=== PATIENT | male | born 1985 | race Caucasian/White ===

== ENCOUNTER 2018-06-27 17:07 | Emergency (ER) | payer BC, SELFPAY ==
[2018-06-27 17:16] VITALS: BP 127/87; PULSE 81; RESP 16; TEMP 37.2; O2SAT 97
--- NOTE | 2018-06-27 19:30 | ED_ITS ---
HPI - Dental/Oral General Chief complaint: Dental/Oral Stated complaint: facial swelling Time Seen by Provider: 06/27/18 19:28 Source: patient Mode of arrival: ambulatory Limitations: no limitations History of Present Illness HPI Narrative: Patient is a 33-year-old male with known very poor dentition who is seen a dentist in the past and was instructed he needed have multiple tooth extractions here for evaluation of swelling in his right upper face. States it has been going on for the past couple days. He is still tolerating oral intake. No respiratory symptoms. Has not tried anything for this prior to arrival. Related Data Previous Rx's Medication Instructions Recorded penicillin V potassium 500 mg PO QID 7 Days #28 tab 06/27/18 Review of Systems Constitutional Denies fever(s) and Denies headache(s) ENT Ears, Nose, Mouth, and Throat: Reports dental pain, Denies vertigo, Reports facial pain, Denies headache(s), Reports mouth lesions, Reports mouth pain, Denies neck pain, Denies nose pain, Denies disequilibrium, Denies sinus pressure , Denies sore throat, Denies throat swelling and Denies tongue swelling Cardiovascular Denies chest pain and Denies dyspnea Respiratory Denies cough and Denies dyspnea Gastrointestinal Gastrointestinal: Denies nausea and Denies vomiting Musculoskeletal Denies neck pain Integumentary/Breasts Denies lesions and Denies rash Neurologic Denies vertigo, Denies headache(s) and Denies disequilibrium Hematologic/Lymphatic Denies easy bleeding and Denies easy bruising Allergic/Immunologic Denies throat swelling and Denies tongue swelling PFSH Medical History Hemophilia (Acute) Surgical History No pertinent past surgical history (Acute) Social History lives independently: Yes Smoking Status: Never smoker Exam Initial Vital Signs Initial Vital Signs: Vital Signs Temperature 99.0 F 06/27/18 17:16 Pulse Rate 81 06/27/18 17:16 Respiratory Rate 16 06/27/18 17:16 Blood Pressure 127/87 06/27/18 17:16 Pulse Oximetry 97 06/27/18 17:16 Const General: cooperative, healthy appearing, comfortable, well developed, well groomed and No acute distress Orientation: alert, awake and oriented x3 HENMT Head: normal to inspection, normocephalic and atraumatic Ears: other ( left tympanic membrane is cured by cerumen) Face and sinus: other ( patient has right upper mouth swelling.) Mouth: other ( does have a small area what appears to be an abscess in right upper teeth) Teeth and gingiva: caries and poor dentition Resp Effort & Inspection: normal respiratory effort Auscultation: clear to auscultation bilaterally Cardio Rate: regular rate Rhythm: regular rhythm Skin Lesions: no lesions Rashes: no rashes Neuro General: alert, awake and oriented x3 Extrem General: normal to inspection and capillary refill normal Psych Appearance: grossly normal and well kempt Course Orders Ordered: Discontinued Medications Penicillin V Potassium (Veetids) 500 mg PO NOW ONE Stop: 06/27/18 19:38 Last Admin: 06/27/18 19:45 Dose: 500 mg Vital Signs - 8 hr 06/27/18 17:16 06/27/18 19:53 Temperature 99.0 F 97.6 F Pulse Rate 81 80 Respiratory Rate 16 18 Blood Pressure 127/87 Blood Pressure [Right Arm] 130/80 Pulse Oximetry 97 99 MDM - Dental/Oral MDM Narrative Medical decision making narrative: patient what appears to be a dental abscess in his right upper mouth. No airway issues. There is a small area a at the mucosa which could potentially be drained here in the emergency department however the patient declined this offer stating that he is a hemophiliac and has problems with bleeding. I did inform him that there was an area that I could drain here in the ER that would potentially improve some of his symptoms that we could deal with the bleeding afterwards but he declined this offer. Will send home with a prescription for antibiotics. He was given return precautions. He expressed understanding and agreement with plan. Discharge Plan Departure Patient Disposition: Home Clinical Impression: Dental abscess Discharge Date/Time: 06/27/18 20:18 Interventions: ED Discharge Assessment Last Done: 06/27/18 20:17 Instructions: Tooth Abscess Activity Restrictions/Additional Instructions: you do need to see a dentist to take care of the infection that you have today and also to address your other dental issues. Your 1st dose of antibiotics was given to you this evening. Start taking them 4 times a day tomorrow. Return to the emergency department for any new or worsening symptoms Prescriptions: New penicillin V potassium 500 mg tablet 500 mg PO QID 7 Days Qty: 28 RF: 0
[2018-06-27] MEDS: PENICILLIN VK 250 MG TABLET 500 MG PO (19:45)
[2018-06-27 19:53] VITALS: BP 130/80; PULSE 80; RESP 18; TEMP 36.4; O2SAT 99
--- NOTE | 2018-06-27 20:18 | PC.NURSE ---
No difficulty swallowing,right sided facial swelling today,has multiple dental caries,no n/v,no fevers.
== END 2018-06-27 20:18 | disposition home or self-care (01) ==
PROVIDERS: Emergency Provider Emergency Medicine
DX: K04.7 Periapical abscess without sinus (principal)
CPT/HCPCS: 99282; 99283

== ENCOUNTER 2018-08-18 05:14 | Emergency (ER) | payer BC, SELFPAY ==
[2018-08-18 05:22] VITALS: BP 125/83; PULSE 80; RESP 16; TEMP 36.8; O2SAT 99
[2018-08-18 05:25] VITALS: PULSE 80; RESP 16; TEMP 36.8; O2SAT 99; BMI 31.1
[2018-08-18 06:15] VITALS: PULSE 75; RESP 16; TEMP 36.8; O2SAT 98; BMI 31.1
[2018-08-18 06:24] VITALS: BP 119/69; PULSE 75; RESP 16; O2SAT 98
[2018-08-18 06:25] LABS: Add Manual Diff / Slide Review NO; Basophils Absolute Auto 0 /uL (0-100); Basophils Percent Auto 0.7 % (0-2); Eosinophils Absolute Auto 0 /uL (0-450); Eosinophils Percent Auto 0.5 % (2-4); Hematocrit 38.3 % (41-53); Hemoglobin 13.8 g/dL (13.5-17.5); Lymphocytes Absolute Auto 2600 /uL (1100-4500); Lymphocytes Percent Auto 33.8 % (25-40); Mean Corpuscular Hemoglobin 30.8 PG (26-34); Mean Corpuscular Volume 85.5 fL (80-100); Monocytes Absolute Auto 500 /uL (0-900); Neutrophils Absolute Auto 4400 /uL (1500-7000); Platelet Count 221 X10^3/uL (150-400); Red Blood Cell Count 4.48 X10^6/uL (4.5-5.9); Red Cell Distribution Width 13.1 % (11.6-14.8); White Blood Cell Count 7.5 X10^3/uL (4.5-11.0)
[2018-08-18] MEDS: AMOXICILLIN 250 MG CAPSULE 500 MG PO (06:35)
--- NOTE | 2018-08-31 09:18 | ED.ABDPAIN ---
HPI - Abdominal Pain General Chief Complaint: Abdominal Pain Stated Complaint: Abdominal Pain Time Seen by Provider: 08/18/18 05:32 Source: patient Mode of arrival: ambulatory Limitations: no limitations History of Present Illness HPI narrative: Patient complains of blood in the toilet paper after wiping when having a bowel movement. He states he has had some lower abdominal cramping recently, but no diarrhea, nausea, or vomiting. No fevers. Patient has occasionally had the symptoms before. He states he is not bleeding in between onto his underwear. He has not had any melena. No maroon stools. Patient has no known history of ulcerative disease of any kind. He states he is otherwise healthy. He does have a tooth that has been bothering him and is concerned that may be infected. He has not had any swelling of the face or gums. No drainage into his mouth. No other complaints at this time. Patient states his pain currently is a 2/10. Nothing makes it better or worse. Patient states his main concern about the bleeding is that he has a history of a mild form of hemophilia. Related Data Previous Rx's Medication Instructions Recorded amoxicillin 500 mg PO TID #20 cap 08/18/18 Allergies Allergy/AdvReac Type Severity Reaction Status Date / Time codeine Allergy Verified 08/18/18 05:33 Review of Systems Constitutional Denies chills, Denies fever(s), Denies lethargy and Denies weakness Eyes Denies change in vision, Denies eye discharge, Denies irritation and Denies loss of vision ENT Ears, Nose, Mouth, and Throat: Denies change in voice, Denies neck pain and Denies sore throat Cardiovascular Denies chest pain, Denies irregular heart rhythm, Denies lightheadedness, Denies palpitations, Denies dyspnea, Denies dyspnea on exertion and Denies orthopnea Respiratory Denies cough, Denies dyspnea, Denies dyspnea on exertion and Denies wheezing Gastrointestinal Gastrointestinal: Denies change in bowel habits, Denies diarrhea, Denies nausea and Denies vomiting Comments: Abdominal cramping, rectal bleeding Genitourinary Denies hematuria, Denies flank pain, Denies urinary incontinence and Denies urinary urgency Musculoskeletal Denies neck pain Integumentary/Breasts Denies pruritus, Denies erythema, Denies rash and Denies wounds Neurologic Denies confusion, Denies loss of vision and Denies weakness Psychiatric Denies anxiety, Denies confusion, Denies depression, Denies homicidal ideation and Denies suicidal ideation Endocrine Denies palpitations Hematologic/Lymphatic Denies easy bruising Allergic/Immunologic Denies wheezing [facility] Medical History Hemophilia (Acute) Surgical History No pertinent past surgical history (Acute) Social History lives independently: Yes Smoking Status: Never smoker Social History lives independently: Yes Smoking Status: Never smoker Exam Initial Vital Signs Initial Vital Signs: Vital Signs Temperature 98.2 F 08/18/18 05:22 Pulse Rate 80 08/18/18 05:22 Respiratory Rate 16 08/18/18 05:22 Blood Pressure 125/83 08/18/18 05:22 Pulse Oximetry 99 08/18/18 05:22 Const General: cooperative and well developed Nutritional Appearance: well nourished Orientation: alert, awake, oriented x3 and not confused HENMT Head: normocephalic and atraumatic Ears: external ears normal Nose: external nose normal and No nasal discharge Face and sinus: face symmetric and No dry mucous membranes Mouth: oral mucosae normal and moist mucous membranes Teeth and gingiva: caries and poor dentition Eyes General: appearance normal, both eyes and all related structures Eyelids: eyelids normal Conjunctivae: conjunctivae normal Sclera: sclerae normal Pupils: PERRL EOM: EOM intact bilaterally Neck Neck: normal visual inspection, trachea midline, No lymphadenopathy, No midline deformity and No JVD Lymphatic: No lymphedema Chest Chest: normal inspection of the chest Resp Effort & Inspection: normal respiratory effort, able to speak in complete sentences, no respiratory distress and no use of accessory muscles Auscultation: clear to auscultation bilaterally, no rales, no rhonchi and no wheezes Cardio Rate: regular rate Rhythm: regular rhythm Heart Sounds: no click, no gallops, no murmurs and no rubs Pulses: normal peripheral pulses GI Inspection: non-distended Palpation: soft, no hepatosplenomegaly, No guarding, No pulsatile mass and No tender Auscultation: normal bowel sounds Rectal Exam: visual inspection normal, normal sphincter tone, No abnormal stool and heme negative stool Back/Spine/Pelvis Back: No CVA tenderness Cervical Spine: cervical ROM normal and No pain with cervical ROM Thoracic/Lumbar Spine: thoracic and lumbar spine normal to inspection Skin General: no rashes or lesions noted, No jaundice and No petechiae Neuro General: alert, oriented x3, gait normal and no focal motor deficits Speech: speech normal Extrem General: full ROM, no clubbing, cyanosis or edema, no pedal edema and no calf tenderness Psych Appearance: well kempt Mental Status: mental status grossly normal Attitude: cooperative Thought Content: normal and suicidality Judgment: judgment good Course Course Narrative: Patient's guaiac test was negative in the emergency department. His CBC was unremarkable. I discussed with the patient that there is no evidence of ongoing bleeding at this time, and there is no evidence that he has lost a dangerous amount of blood. Patient may have a fissure or an internal hemorrhoid. We have discussed concerns regarding bleeding, and the usual indications for return. At this point in time, this patient is stable for discharge home. Orders Ordered: Discontinued Medications Amoxicillin (Trimox) 500 mg PO NOW ONE Stop: 08/18/18 06:31 Last Admin: 08/18/18 06:35 Dose: 500 mg MDM - Abdominal Pain Medical Records Attestation: I reviewed the patient's medical records. Lab Data Attestation: I reviewed the patient's lab results. Result diagrams: 08/18/18 06:16 Lab Results 08/18/18 Range/Units 06:16 WBC 7.5 (4.5-11.0) X10^3/uL RBC 4.48 L (4.5-5.9) X10^6/uL Hgb 13.8 (13.5-17.5) g/dL Hct 38.3 L (41-53) % MCV 85.5 (80-100) fL MCH 30.8 (26-34) PG MCHC 36.0 (30-36) % RDW 13.1 (11.6-14.8) % Plt Count 221 (150-400) X10^3/uL Neut % (Auto) 58.0 (50-75) % Lymph % (Auto) 33.8 (25-40) % [place] % (Auto) 7.0 (3-14) % Eos % (Auto) 0.5 L (2-4) % Baso % (Auto) 0.7 (0-2) % Neut # (Auto) 4400 (8477-9082) /uL Lymph # (Auto) 2600 (2467-4531) /uL [place] # (Auto) 500 (0-900) /uL Eos # (Auto) 0 (0-450) /uL Baso # (Auto) 0 (0-100) /uL Discharge Plan Departure Patient Disposition: Home Clinical Impression: Acute GI bleeding, Dental infection Discharge Date/Time: 08/18/18 06:40 Interventions: ED Discharge Assessment Last Done: 08/18/18 06:40 Instructions: Gastrointestinal Bleeding Activity Restrictions/Additional Instructions: Your labs look great. There is no evidence that you have lost a dangerous amount of blood. Please follow up with your dentist about your tooth infection. Prescriptions: New amoxicillin 500 mg capsule 500 mg PO TID Qty: 20 RF: 0 Referrals: [facility] [Provider Group]
== END 2018-08-18 06:40 | disposition home or self-care (01) ==
LOC: ED 07:10
PROVIDERS: Emergency Provider Emergency Medicine
DX: K92.2 Gastrointestinal hemorrhage, unspecified (principal); K04.7 Periapical abscess without sinus
CPT/HCPCS: 36415; 85025; 99282; 99283